=== PATIENT | male | born 1985 | race Caucasian/White ===

== ENCOUNTER 2017-02-02 23:40 | Emergency (ER) | payer OTHER ==
[~2017-02-02] VITALS: Ht 188 cm; Wt 99.8 kg
[~2017-02-02 23:40] MED LIST: BACTRIM DS TAB1 EACH PO; CLEOCIN HCL300 MG PO; CLONAZEPAM 1 MG1 M1 PO; DOXYCYCLINE 10100 MG PO; ERYTHROMYCIN E3.5 G1 OPHTHALMIC; IBUPROFEN 600600 M1 PO; IBUPROFEN 800800 MG PO; KEFLEX500 MG PO; NOHOMEMEDICATIONS; NORCO 5-325 TA1 EACH PO; PAXIL10 MG PO; PERCOCET 5-3251 EACH PO; PROZAC10 MG PO; SILVADENE20 GM TP; TRILEPTAL600 MG PO; ULTRAM 50MG TAB50 MG PO; XANAX 0.25 MG0.25 MG PO; XANAX 1 MG TABLE1 MG PO
[2017-02-03] MEDS ORDERED: NORCO 7.5-3251 EACH PO (01:02)
[2017-02-03] MEDS ORDERED: FLEXERIL PO (01:02)
[2017-02-03 01:17] VITALS: BP 102/73
== END 2017-02-03 01:18 | disposition home or self-care (01) ==
LOC: ER 23:40
DX: S06.9X9A Unspecified intracranial injury with loss of consciousness of unspecified duration, initial encounter (principal); M20.021 Boutonniere deformity of right finger(s); Z88.0 Allergy status to penicillin; Z88.6 Allergy status to analgesic agent; V89.2XXA Person injured in unspecified motor-vehicle accident, traffic, initial encounter; Y93.89 Activity, other specified; Y92.89 Other specified places as the place of occurrence of the external cause; Y99.9 Unspecified external cause status